=== PATIENT | female | born 1980 | race Two or more races ===

== ENCOUNTER → 2019-12-08 | Outpatient (CLI) | payer BC ==
--- NOTE | 2019-12-10 13:59 | RAD ---
EXAM: BILATERAL DIGITAL SCREENING MAMMOGRAPHY. HISTORY: Routine mammographic screening. TECHNIQUE: Bilateral full field digital images were obtained in CC and MLO projections. Computer-aided detection was applied. COMPARISON: None available. This is interpreted as a baseline study. COMPOSITION: C. The breasts are heterogeneously dense, which may obscure small masses. FINDINGS: There is a region of suggested architectural distortion superolaterally on the right. See annotations. Scattered and coarse calcifications are benign. There is no suspicious finding on the left. BI-RADS CATEGORY 0: Incomplete--Needs Additional Imaging Evaluation. RECOMMENDATION: 1. Spot compression and sonography of suggested architectural distortion superolaterally on the right. Electronically signed by: Kadeem Rosa MD (12/10/2019 1:56 PM) [id number]
== END ==
LOC: MAMMO 13:51
PROVIDERS: ATTEND Physician Assistant Medical
DX: Z12.31 Encounter for screening mammogram for malignant neoplasm of breast (principal)
CPT/HCPCS: 77067

== ENCOUNTER → 2019-12-24 | Outpatient (CLI) | payer BC ==
--- NOTE | 2019-12-24 18:11 | RAD ---
DATE: 12/24/2019 2:30 PM EXAM: BREAST RIGHT, DIGITAL DIAGNOSTIC RT HISTORY: Screening recall for right breast architectural distortion COMPARISON: 12/08/2019 Technique: A full-field right ML view as well as a spot CC compression view of the right breast were obtained. Images were acquired with 2-D and 3-D technique and reviewed with computer-aided detection. Targeted ultrasound of the lateral right breast and upper outer quadrant was also performed. FINDINGS: Breast Density: HETERO The breast parenchyma Is heterogeneously dense, which could reduce sensitivity of mammography. Breast parenchyma level C Additional mammographic views showed a change in configuration of the questioned architectural distortion in a pattern suggestive of possible overlap of fibroglandular tissue. Targeted ultrasound of the upper-outer right breast between benign and 12:00 positions show dense fibroglandular tissue with no discrete sonographic mass or suspicious sonographic findings. IMPRESSION: Probably benign island of dense fibroglandular tissue in the upper outer quadrant right breast. BI-RADS CATEGORY: 3 PROBABLY BENIGN FINDING(S)-SHORT INTERVAL FOLLOW-UP SUGGESTED RECOMMENDED FOLLOW-UP: 6M 6 MONTH FOLLOW-UP right diagnostic mammogram with possible ultrasound recommended. PQRS compliance statement: Patient information was entered into a reminder system with a target due date for the next mammogram. Mammography is a sensitive method for finding small breast cancers, but it does not detect them all and is not a substitute for careful clinical examination. A negative mammogram does not negate a clinically suspicious finding and should not result in delay in biopsying a clinically suspicious abnormality. "Our facility is accredited by the [employer] Mammography Program."
== END | disposition home or self-care (01) ==
LOC: MAMMO 13:49
PROVIDERS: ATTEND Physician Assistant Medical
DX: R92.2 Inconclusive mammogram (principal)
CPT/HCPCS: 76641; 77065